=== PATIENT | female | born 1955 | race Caucasian/White ===

== ENCOUNTER 2016-08-23 19:14 | Emergency (ER) | payer MEDICARE, OTHER ==
[2016-08-23] MEDS ORDERED: HYDROcodone /APAP 5/325 1 EACH TABLET PO ONE (19:48)
[2016-08-23 20:02] VITALS: BP 131/77
--- NOTE | 2016-08-23 23:52 | ED Physician Documentation ---
General Adult - HISTORIAN Historian: patient - HPI Stated Complaint: CHIN LAC Chief Complaint: Laceration/Recheck/Suture Additional Information: fell, tripped over cat Onset: hours (4) Timing: still present Severity: moderate Further Comments: no - ROS CONST: no problems EYES/ENT: none CVS/RESP: none GI/: none MS/SKIN/LYMPH: other (chin laceration) NEURO/PSYCH: denies: headache, fainting, dizziness, tingling, numbness, difficulty walking, difficulty with speech, anxiety, depression - PAST HX Past History: asthma, COPD, other (fibromyalgia) Other History: other (fibromyalgia) Surgeries/Procedures: none Immunizations: referred to PCP Allergies/Adverse Reactions: Allergies Allergy/AdvReac Type Severity Reaction Status Date / Time banana Allergy Verified 08/23/16 19:35 duloxetine HCl Allergy Verified 08/23/16 19:35 [From Cymbalta] squid Allergy Verified 08/23/16 19:35 Home Medications: Ambulatory Orders Medication Instructions Recorded Albuterol Sulfate [ProAir 1 puff INH Q6H PRN 08/23/16 RespiClick] Amitriptyline HCl 75 mg PO HS 08/23/16 Diclofenac Sodium [Voltaren] 50 mg PO TID 08/23/16 Esomeprazole Magnesium [Nexium] 40 mg PO D 08/23/16 Fluticasone/Salmeterol [Advair 1 each INH DAILY 08/23/16 250-50 Diskus] Levothyroxine Sodium [Synthroid] 100 mcg PO 0700 08/23/16 Montelukast Sodium [Singulair] 10 mg PO HS 08/23/16 Tiotropium [place] [Spiriva] 1 inh IH QD 08/23/16 amLODIPine BESYLATE [Norvasc] 10 mg PO 0900 08/23/16 - SOCIAL HX Smoking History: cigarettes Alcohol Use: none Drug Use: none - FAMILY HX Family History: No - VITAL SIGNS Vital Signs: Vital Signs Temp Pulse Resp BP Pulse Ox 98.4 F 84 22 131/77 88 L 08/23/16 20:01 08/23/16 20:01 08/23/16 20:01 08/23/16 20:01 08/23/16 19:14 - REVIEWED ASSESSMENTS Nursing Assessment Reviewed: Yes Vitals Reviewed: Yes Progress - Results/Orders Results/Orders: no testing ordered - Progress Progress: Laceration site cleaned with soap and water, surgical adhesive used for successful closure, well tolerated, no complication Critical Care Note - Critical Care Note Total Time (mins): 0 ED Results Lab/Radiology - Lab Results Lab Results: none ordered - Radiology Radiology Impressions: none ordered - Orders Orders: ED Orders Category Date Time Status Skin Adhesive NOW Care 08/23/16 19:45 Ordered HYDROcodone /APAP 5/325 [Mineral 5/325] Med 08/23/16 19:48 Discontinued 1 each PO NOW ONE Oxygen Daily Oxygen 08/23/16 19:45 Ordered General Adult Physical Exam - PHYSICAL EXAM GENERAL APPEARANCE: mild distress EENT: eye inspection normal, ENT inspection normal, pharynx normal, no signs of dehydration, TOM, no nystagmus, TM's nml NECK: normal inspection, thyroid normal, supple RESPIRATORY: no resp distress, chest non-tender, breath sounds normal CVS: reg rate & rhythm, heart sounds normal, equal pulses, no murmur, no gallop , PMI nml ABDOMEN: soft, no organomegaly, normal bowel sounds, no abdominal bruit, no distension, non-tender BACK: normal inspection, no CVA tenderness SKIN: other (2 cm horizontal laceration chin) EXTREMITIES: non-tender, normal range of motion, no evidence of injury, no edema NEURO: oriented X3, CN's nml as tested, motor nml, sensation nml, mood/affect nml, cognition normal Discharge Clincal Impression: Laceration of chin Qualifiers: Encounter type: initial encounter Qualified Code(s): S01.81XA - Laceration without foreign body of other part of head, initial encounter Referrals: Armando Yeung [Primary Care Provider] - 2 Days Home Medications: Ambulatory Orders Albuterol Sulfate [ProAir RespiClick] 1 puff INH Q6H PRN 08/23/16 Amitriptyline HCl 75 mg PO HS 08/23/16 Diclofenac Sodium [Voltaren] 50 mg PO TID 08/23/16 Esomeprazole Magnesium [Nexium] 40 mg PO D 08/23/16 Fluticasone/Salmeterol [Advair 250-50 Diskus] 1 each INH DAILY 08/23/16 Levothyroxine Sodium [Synthroid] 100 mcg PO 0700 08/23/16 Montelukast Sodium [Singulair] 10 mg PO HS 08/23/16 Tiotropium [place] [Spiriva] 1 inh IH QD 08/23/16 amLODIPine BESYLATE [Norvasc] 10 mg PO 0900 08/23/16 Comments: discharged in stable condition with script for meloxicam 7.5 mg # 10 1 p.o. bid x 5 days. Condition: Stable Disposition: 01 HOME, SELF-CARE Decision to Admit: NO Decision Time: 20:00
== END 2016-08-23 20:01 | disposition home or self-care (01) ==
LOC: ED 19:16
DX: S01.81XA Laceration without foreign body of other part of head, initial encounter (principal); W19.XXXA Unspecified fall, initial encounter; Y93.9 Activity, unspecified; Y99.9 Unspecified external cause status
CPT/HCPCS: 99283; A9270-GY